=== PATIENT | female | born 1965 | race Caucasian/White ===

== ENCOUNTER 2017-06-21 12:07 | Emergency (ER) | payer OTHER ==
[~2017-06-21] VITALS: Ht 167.6 cm; Wt 65.9 kg
[2017-06-21 12:15] VITALS: BP 113/65; TEMP 98
[2017-06-21] MEDS ORDERED: NOLVADEX 1010 MG/TAB (12:18)
[2017-06-21] MEDS ORDERED: MULTIPLE VITAMI1 CAP PO (12:18)
[2017-06-21] MEDS ORDERED: VITAMIN D31000 I1 PO (12:18)
[2017-06-21] MEDS ORDERED: IRON TABLETS325 MG PO (12:19)
[2017-06-21 14:00] VITALS: PULSE 68
== END 2017-06-21 14:02 | disposition home or self-care (01) ==
LOC: COL.ER 12:07
DX: S01.511A Laceration without foreign body of lip, initial encounter (principal); V19.9XXA Pedal cyclist (driver) (passenger) injured in unspecified traffic accident, initial encounter; Z85.3 Personal history of malignant neoplasm of breast; Z90.10 Acquired absence of unspecified breast and nipple

== ENCOUNTER 2017-06-25 16:36 | Emergency (ER) | payer OTHER ==
[~2017-06-25 16:36] MED LIST: IRON TABLETS325 MG PO; MULTIPLE VITAMI1 CAP PO; NOLVADEX 1010 MG/TAB; VITAMIN D31000 I1 PO
[2017-06-25 16:42] VITALS: BP 118/71; PULSE 67; TEMP 96.8
== END 2017-06-25 16:51 | disposition home or self-care (01) ==
LOC: COL.ER 16:36
DX: S01.511D Laceration without foreign body of lip, subsequent encounter (principal)